=== PATIENT | female | born 1995 | race Caucasian/White ===

== ENCOUNTER → 2021-03-15 15:30 | Outpatient (BNVA) | payer BC, SELFPAY | PROVIDERS: Family Provider Nurse Practitioner Family; PCP Nurse Practitioner Family | DX: J06.9 Acute upper respiratory infection, unspecified (principal); J02.9 Acute pharyngitis, unspecified | CPT/HCPCS: 87071; 87880 ==

== ENCOUNTER → 2021-04-24 12:36 | Outpatient (BNVA) | payer BC, SELFPAY | PROVIDERS: Family Provider Nurse Practitioner Family; PCP Nurse Practitioner Family; Visit Provider Obstetrics & Gynecology | DX: Z01.83 Encounter for blood typing (principal); E55.9 Vitamin D deficiency, unspecified; Z01.84 Encounter for antibody response examination; E34.9 Endocrine disorder, unspecified; R53.83 Other fatigue; Z11.9 Encounter for screening for infectious and parasitic diseases, unspecified; N97.9 Female infertility, unspecified | CPT/HCPCS: 82306; 83520; 85025; 86592; 86765; 86787; 86900; 87340; 87806 ==